=== PATIENT | male | born 1970 | race Caucasian/White ===

== ENCOUNTER 2018-06-12 16:40 | Emergency (ER) | payer OTHER ==
[2018-06-12] MEDS: PERCOCET 5MG/325MG TAB PO (17:30)
[2018-06-12] MEDS: LIDOCAINE 1% MDV 20ML VIAL IM (18:45)
[2018-06-12] MEDS: IBUPROFEN 600 MG TAB PO (21:01)
== END 2018-06-12 21:35 | disposition short-term general hospital (02) ==
LOC: M ED 16:40
DX: Z04.1 Encounter for examination and observation following transport accident (principal); S52.351A Displaced comminuted fracture of shaft of radius, right arm, initial encounter for closed fracture
CPT/HCPCS: 73090

== ENCOUNTER → 2019-06-15 | Outpatient (REF) | payer OTHER ==
[2019-06-17 08:06] LABS: LDL DIRECT 113 mg/dL (0-99)
== END ==
LOC: M LAB REF 12:11
PROVIDERS: ATTEND Nurse Practitioner Adult Health
DX: E78.00 Pure hypercholesterolemia, unspecified (principal)

== ENCOUNTER → 2022-10-28 | Outpatient (REF) | payer OTHER ==
[2022-10-28 17:35] LABS: HEMOGLOBIN A1c 6.9 % (4.0-6.0)
[2022-10-28 17:38] LABS: CHOLESTEROL RISK RATIO 3.55 (<5); HDL CHOLESTEROL 38.5 MG/DL (>40); LDL CHOLESTEROL 79.9 MG/DL (<100)
== END ==
LOC: M LAB REF 16:36
PROVIDERS: ATTEND Pediatrics
DX: E11.9 Type 2 diabetes mellitus without complications (principal); E78.5 Hyperlipidemia, unspecified

== ENCOUNTER → 2023-10-07 | Outpatient (REF) | payer OTHER ==
[2023-10-07 19:22] LABS: CREATININE, URINE 219.8 MG/DL
[2023-10-07 19:26] LABS: MAU/CREAT RATIO 8.6 MCG/MG (0.0-30.0)
[2023-10-07 19:28] LABS: PSA SCREENING 0.67 NG/ML (< 4.00)
[2023-10-07 19:32] LABS: THYROID STIMULATING HORMONE 4.846 uIU/ML (0.55-4.78)
[2023-10-07 19:36] LABS: ALBUMIN 4.3 G/DL (3.2-5.2); ALKALINE PHOSPHATASE 116 U/L (46-116); ALT/SGPT 23 U/L (7.0-40); AST/SGOT 15 U/L (<34); BILIRUBIN,TOTAL 0.4 MG/DL (0.3-1.2); BLOOD UREA NITROGEN 13 MG/DL (9-23); CALCIUM LEVEL 9.4 MG/DL (8.5-10.1); CARBON DIOXIDE LEVEL 25 MMOL/L (20-31); CHLORIDE LEVEL 105 MMOL/L (98-107); CHOLESTEROL LEVEL 228 MG/DL (<200); CHOLESTEROL RISK RATIO 5.24 (<5); CREATININE FOR GFR 0.82 MG/DL (0.70-1.30); GLOMERULAR FILTRATION RATE > 60.0 (>56); GLUCOSE, FASTING 222 MG/DL (60-100); HDL CHOLESTEROL 43.5 MG/DL (>40); LDL CHOLESTEROL 139.3 MG/DL (<100); NON-HDL-C 184.5 MG/DL; POTASSIUM SERUM 4.1 MMOL/L (3.5-5.1); SODIUM LEVEL 139 MMOL/L (136-145); TOTAL PROTEIN 7.3 G/DL (5.7-8.2); TRIGLYCERIDES LEVEL 226 MG/DL (<150)
== END ==
LOC: M LAB REF 16:49
PROVIDERS: ATTEND Pediatrics
DX: E11.9 Type 2 diabetes mellitus without complications (principal)

== ENCOUNTER → 2023-10-28 | Outpatient (REF) | payer OTHER | LOC: M LAB REF 18:04 | PROVIDERS: ATTEND Podiatrist Foot & Ankle Surgery | DX: B08.1 Molluscum contagiosum (principal) ==

== ENCOUNTER → 2024-01-07 | Outpatient (REF) | payer OTHER, MEDICAID ==
[2024-01-07 17:46] LABS: BLOOD UREA NITROGEN 10 MG/DL (9-23); CALCIUM LEVEL 9.4 MG/DL (8.5-10.1); CARBON DIOXIDE LEVEL 26 MMOL/L (20-31); CHLORIDE LEVEL 102 MMOL/L (98-107); CREATININE FOR GFR 0.62 MG/DL (0.70-1.30); GLOMERULAR FILTRATION RATE > 60.0 (>56); GLUCOSE, FASTING 202 MG/DL (60-100); MAGNESIUM LEVEL 1.6 MG/DL (1.8-2.4); POTASSIUM SERUM 4.2 MMOL/L (3.5-5.1); SODIUM LEVEL 137 MMOL/L (136-145)
[2024-01-07 17:47] LABS: FREE T4 1.04 NG/DL (0.89-1.76); THYROID STIMULATING HORMONE 5.168 uIU/ML (0.55-4.78)
[2024-01-07 18:10] LABS: HEMOGLOBIN A1c 8.1 % (4.0-6.0)
== END ==
LOC: M LAB REF 16:31
PROVIDERS: ATTEND Nurse Practitioner Family
DX: R00.2 Palpitations (principal); E11.9 Type 2 diabetes mellitus without complications

== ENCOUNTER → 2024-01-14 | Outpatient (CLI) | payer OTHER | LOC: M EKG 10:47 | PROVIDERS: ATTEND Nurse Practitioner Family | DX: R00.2 Palpitations (principal) ==